=== PATIENT | female | born 1995 | race Caucasian/White ===

== ENCOUNTER 2019-04-08 13:08 | Emergency (ER) | payer OTHER ==
[~2019-04-08] VITALS: Ht 157.5 cm; Wt 104.3 kg
[2019-04-08] MEDS ORDERED: METOPROLOL SUCC25 MG (13:36)
== END 2019-04-08 19:16 | disposition home or self-care (01) ==
LOC: ER 13:08
DX: M54.89 Other dorsalgia (principal)

== ENCOUNTER 2019-08-24 12:25 | Emergency (ER) | payer OTHER ==
[~2019-08-24] VITALS: Ht 157.5 cm; Wt 110.7 kg
[~2019-08-24 12:25] MED LIST: METOPROLOL SUCC25 MG
== END 2019-08-24 16:50 | disposition home or self-care (01) ==
LOC: ER 12:25
DX: M54.89 Other dorsalgia (principal)

== ENCOUNTER 2019-12-15 10:20 | Emergency (ER) | payer OTHER ==
[~2019-12-15] VITALS: Ht 157.5 cm; Wt 110.7 kg
== END 2019-12-15 19:22 | disposition home or self-care (01) ==
LOC: ER 10:20
DX: I88.0 Nonspecific mesenteric lymphadenitis (principal); R10.2 Pelvic and perineal pain

== ENCOUNTER 2019-12-18 21:35 | Emergency (ER) | payer OTHER ==
[~2019-12-18] VITALS: Ht 157.5 cm; Wt 110.7 kg
[2019-12-18] MEDS ORDERED: ZITHROMAX500 MG (21:50)
[2019-12-18] MEDS ORDERED: PEPCID AC20 MG PO (23:59)
[2019-12-18] MEDS ORDERED: CIPRO500 MG PO (23:59)
[2019-12-18] MEDS ORDERED: FLAGYL500MG PO (23:59)
[2019-12-18] MEDS ORDERED: ZOFRAN8 MG PO (23:59)
[2019-12-18] MEDS ORDERED: LEVSIN/SL0.125 MG SL (23:59)
== END 2019-12-19 03:11 | disposition home or self-care (01) ==
LOC: ER 21:35
DX: I88.0 Nonspecific mesenteric lymphadenitis (principal)

== ENCOUNTER 2019-12-20 20:31 | Emergency (ER) | payer OTHER ==
[~2019-12-20] VITALS: Ht 157.5 cm; Wt 110.7 kg
[~2019-12-20 20:31] MED LIST changes: +CIPRO500 MG PO; +FLAGYL500MG PO; +LEVSIN/SL0.125 MG SL; +PEPCID AC20 MG PO; +ZITHROMAX500 MG; +ZOFRAN8 MG PO
[2019-12-21] MEDS ORDERED: MOBIC15 MG PO (06:04)
== END 2019-12-21 06:22 ==
LOC: ER 20:31
DX: I88.0 Nonspecific mesenteric lymphadenitis (principal)
CPT/HCPCS: 74177; 76856; Q9965

== ENCOUNTER 2020-04-03 19:45 | Emergency (ER) | payer OTHER ==
[~2020-04-03] VITALS: Ht 157.5 cm; Wt 113.4 kg
[~2020-04-03 19:45] MED LIST changes: +MOBIC15 MG PO
[2020-04-03] MEDS ORDERED: ORPHENADRINE C100 MG (20:10)
[2020-04-03] MEDS ORDERED: KETO10TA2 (20:10)
[2020-04-03] MEDS ORDERED: PERCOCET 5-3251 EACH PO (23:15)
[2020-04-03] MEDS ORDERED: SKELAXIN800 MG PO (23:15)
[2020-04-03] MEDS ORDERED: VOLTAREN-XR100 MG PO (23:15)
== END 2020-04-03 23:26 | disposition home or self-care (01) ==
LOC: ER 19:45
DX: M54.89 Other dorsalgia (principal); M54.2 Cervicalgia; M62.838 Other muscle spasm